=== PATIENT | male | born 1960 | race Caucasian/White ===

== ENCOUNTER 2017-01-27 11:15 | Day surgery (SDC) | payer OTHER ==
[2017-01-27] VITALS (9 sets, daily range): BP systolic 98–129; BP diastolic 61–88; PULSE 69–88; RESP 10–20; Ht 180.3 cm; Wt 79.8 kg
[~2017-01-27] VITALS: Ht 180.3 cm; Wt 79.8 kg
[~2017-01-27 11:15] MED LIST: ALPR2TAB PO
[2017-01-27] MEDS ORDERED: DIAZ10TA4 PO (11:36)
--- NOTE | 2017-01-27 13:21 | HPN ---
Date/Time of Note Date/Time of Note DATE: 01/27/17 TIME: 13:21 Interval H&P Admission Note Pt. seen H&P reviewed: No system changes LACY FLORES MD Jan 27, 2017 13:21
[2017-01-27] MEDS ORDERED: DIPHENHYDRAMINE 50 MG INJ IV PRN (14:30)
[2017-01-27] MEDS ORDERED: FENTAnyl 50 MCG/ML VIAL IV PRN (14:30)
[2017-01-27] MEDS ORDERED: LORAZEPAM 2 MG INJ IV PRN (14:30)
[2017-01-27] MEDS ORDERED: OXYCODONE/ACETAMINOPHEN (5/325) TAB PO PRN ×2 (14:30)
[2017-01-27] MEDS ORDERED: HYDROmorphONE (0.2 MG/ML) 10ML SYG IV PRN (14:30)
[2017-01-27] MEDS ORDERED: MEPERIDINE 25 MG INJ IV PRN (14:30)
[2017-01-27] MEDS ORDERED: ONDANSETRON 4 MG INJ IV PRN (14:30)
[2017-01-27] MEDS ORDERED: INSULIN ASPART [NOVOLOG] 3 ML PEN SC ONE (14:30)
[2017-01-27] MEDS ORDERED: PROCHLORPERAZINE 10 MG INJ IV PRN (14:30)
[2017-01-27] MEDS ORDERED: GLUCAGON 1 MG INJ IM PRN (15:00)
[2017-01-27] MEDS ORDERED: DEXTROSE 50% 50 ML SYRINGE IV PRN ×2 (15:00)
[2017-01-27] MEDS ORDERED: GLUCOSE GEL 15 GRAM TUBE BUCCAL PRN (15:00)
[2017-01-27] MEDS ORDERED: GLUCOSE GEL 15 GRAM TUBE PO PRN ×2 (15:00)
--- NOTE | 2017-01-27 16:32 | OPR ---
Date/Time of Note Date/Time of Note DATE: 01/27/17 TIME: 16:26 Operative Report Preoperative Diagnosis Advanced OA Left Trapezial-metacarpal joint Postoperative Diagnosis same Operation/Procedure Performed Excisional interpositional Arthroplasty Left CMC Jt. Surgeon: LACY FLORES MD Anesthesia: general, other (Supraclavicular Block) Estimated Blood Loss: none Grafts/Implants Palmaris Longus interposion Complications: None LACY FLORES MD Jan 27, 2017 16:32
[2017-01-27] MEDS ORDERED: OXYCODONE/ACETAMINOPHEN (10/325) TAB PO PRN (17:00)
[2017-01-27] MEDS ORDERED: LIDOCAINE 2% (SDV) 5 ML INJ ONE (18:03)
[2017-01-27] MEDS ORDERED: METOCLOPRAMIDE 10 MG INJ ONE (18:03)
[2017-01-27] MEDS ORDERED: CEFAZOLIN 1 GM INJ ONE (18:03)
[2017-01-27] MEDS ORDERED: BACITRACIN/POLYMYXIN 28.35 GM OINT TOP ONE (18:03)
[2017-01-27] MEDS ORDERED: ROPIVACAINE 0.5 % 30 ML VIAL ONE (18:03)
[2017-01-27] MEDS ORDERED: MIDAZOLAM 1 MG/ML 2 ML INJ ONE (18:03)
[2017-01-27] MEDS ORDERED: FENTAnyl 50 MCG/ML VIAL ONE (18:03)
[2017-01-27] MEDS ORDERED: ONDANSETRON 4 MG INJ ONE (18:03)
[2017-01-27] MEDS ORDERED: PROPOFOL 20 ML ONE (18:03)
--- NOTE | 2017-01-28 15:11 | RADRPT ---
PROCEDURE: Intraoperative imaging of the left thumb with fluoroscopy. CLINICAL INDICATION: Left thumb pain. Intraoperative. TECHNIQUE: 32 images of the left were obtained in the operating room with an image intensifier. N o radiologist was in attendance. Fluoroscopy time is unavailable. COMPARISON: No prior study is available for comparison. FINDINGS: Images demonstrate multiple surgical instruments overlying the left thumb. IMPRESSION: 1. Intraoperative imaging of the left thumb. RPTAT: QQ .Jacques Dillard MD, MD Date Time Electronically viewed and signed by .Jacques Dillard MD, on 01/28/2017 15:10 .R/
--- NOTE | 2017-01-29 09:56 | OPR ---
DATE OF OPERATION: 01/27/2017 PREOPERATIVE DIAGNOSIS: Advanced osteoarthritis, left trapezial metacarpal joint. POSTOPERATIVE DIAGNOSIS: Advanced osteoarthritis, left trapezial metacarpal joint. OPERATION PERFORMED: Excisional interpositional arthroplasty with palmaris longus graft and then application of thumb spica splint. Internal fixation of first metacarpal to scaphoid. OPERATIVE PROCEDURE: With the patient supine on the operating room table, general anesthesia was begun. A supraclavicular block was administered as well. Ancef 1 gram IV was administered. Left upper extremity from below the tourniquet was prepared and draped in a sterile fashion. The Esmarch bandage was applied and the tourniquet inflated to 250 mmHg. A curved incision was made overlying the CMC joint. The capsule was divided transversely. There was a large osteophyte on the dorsal aspect to the base of the first metacarpal. This was osteotomized. The trapezia was removed piecemeal, using osteotomes and rongeurs. Three K-wires, 0.62 in diameter, were introduced through the first metacarpal and extended to the base. Attention was directed to the palmaris longus. Three transverse incisions were made, and the palmaris longus was harvested. The palmaris longus was folded on itself and sutured with 3-0 Vicryl, sutured, and again folded until an "anchovy" was created. A double-armed suture was then placed in the deep soft tissue in the wound. This was then sutured to the anchovy. With the first metacarpal reduced over the scaphoid, the "anchovy" was brought into the space between the first metacarpal and the scaphoid. The K-wires were advanced with the aide of the image intensifier in the first metacarpal in an abducted position. The image intensifier showed satisfactory position. The capsule was repaired with interrupted sutures. The K-wires were bent and cut short. Muse were used to approximate the skin. A voluminous sterile hand dressing and thumb-spica splint were applied. The patient tolerated the procedure and left in satisfactory condition. Dictated By: Rahul Nayak MD /[email or web address]/ludy /Document#: [id number]
== END 2017-01-27 17:25 | disposition home or self-care (01) ==
LOC: SDS 11:15
PROVIDERS: ATTEND Orthopaedic Surgery Hand Surgery
DX: M19.042 Primary osteoarthritis, left hand (principal); M72.0 Palmar fascial fibromatosis [Dupuytren]; J44.9 Chronic obstructive pulmonary disease, unspecified; E78.5 Hyperlipidemia, unspecified
CPT/HCPCS: 25447; 26480; 73130; 82962; C1713; J0690; J2060; J2250; J2405; J2765; J2795; J3010; Z7512; Z7610; J1815